=== PATIENT | female | born 1975 | race Caucasian/White ===

== ENCOUNTER → 2018-06-04 07:33 | Outpatient (CLI) | payer BC | END | disposition home or self-care (01) | LOC: D.MRI 07:33 | DX: R42 Dizziness and giddiness (principal) ==

== ENCOUNTER → 2019-10-10 11:29 | Outpatient (CLI) | payer BC | END | disposition home or self-care (01) | LOC: D.HCCECHO 11:29 | PROVIDERS: ATTEND Family Medicine | DX: I10 Essential (primary) hypertension (principal) ==

== ENCOUNTER → 2020-09-07 09:27 | Outpatient (CLI) | payer BC | END | disposition home or self-care (01) | LOC: D.US 09:27 | PROVIDERS: ATTEND Family Medicine | DX: R92.8 Other abnormal and inconclusive findings on diagnostic imaging of breast (principal); N63.11 Unspecified lump in the right breast, upper outer quadrant ==